=== PATIENT | male | born 1970 | race Caucasian/White ===

== ENCOUNTER 2018-03-01 16:47 | Emergency (ER) | payer OTHER ==
[~2018-03-01] VITALS: Ht 170.2 cm; Wt 70.8 kg
--- NOTE | ~2018-03-01 | EKG ---
[address] [place] [address] ELECTROCARDIOGRAM REPORT Name: LANDENGARRET Room #: [facility] Esther#: [id number] Admission: 03/01/18 Attend Phys: Discharge: 03/01/18 Date of : 66 Report #: [id number] THIS REPORT FOR: //name// [facility] ED Test Date: 2018-03-01 Test Time: 16:46:27 Pat Name: GARRET SCHUSTER Department: Room: Gender: M It Architect: DARION : 1970 Requested By: Fermin Rodriguez Order Number: [id number] MD: Jayden Avila Measurements Intervals [place] Rate: 68 P: 44 OK: 154 QRS: 68 QRSD: 93 T: 53 QT: 412 QTc: 439 Interpretive Statements Sinus rhythm No previous ECG available for comparison Electronically Signed On 03-01-2018 22:30:05 CDT by Jayden Avila [email or web address] <ELECTRONICALLY SIGNED> By: Jayden Avila MD 03/01/18 2230 [id number] Jayden Avila MD /HEATHER
[~2018-03-01 16:47] MED LIST: ZOFRAN ODT4 MG PO
[2018-03-01 17:00] LABS: ABSOLUTE NEUTROPHILS 4.7 thou/uL (1.4-8.2); EOSINOPHILS 1.5 % (0.0-3.0); HEMATOCRIT 40.9 % (42.0-52.0); LYMPHOCYTES 37.3 % (24.0-44.0); MCH 32.2 pg (26.0-34.0); MCHC 34.3 g/dL (28.0-37.0); MCV 93.9 fL (80.0-100.0); MONOCYTES 7.8 % (1.0-8.0); PLATELET COUNT 208 thou/uL (150-400); POLYS 52.4 % (36.0-66.0); RBC 4.36 mil/uL (4.50-6.00); RDW 13.8 % (10.5-14.5)
[2018-03-01] MEDS ORDERED: ST. JOSEPH ASPI81 MG PO (17:05)
[2018-03-01 17:06] LABS: ANION GAP 8 mmol/L (7-16); BUN 15 mg/dL (7-18); CALCIUM 9.3 mg/dL (8.5-10.1); CHLORIDE 106 mmol/L (98-107); CO2 26 mmol/L (21-32); GLUCOSE 95 mg/dL (74-106); POTASSIUM 3.6 mmol/L (3.5-5.1); SODIUM 140 mmol/L (136-145)
[2018-03-01] MEDS ORDERED: LISINOPRIL10 MG PO (17:06)
[2018-03-01] MEDS ORDERED: VITAMIN D5000 UNIT PO (17:06)
[2018-03-01] MEDS ORDERED: METFORMIN HCL500 MG PO (17:06)
[2018-03-01] MEDS ORDERED: MOBIC7.5 MG PO (17:06)
[2018-03-01] MEDS ORDERED: LOPRESSOR25 PO (17:07)
[2018-03-01] MEDS ORDERED: TOPAMAX50 MG PO (17:08)
[2018-03-01] MEDS ORDERED: RANITIDINE 150150 MG PO (17:08)
[2018-03-01] MEDS ORDERED: CLONAZEPAM 0.50.5 M1 PO (17:09)
[2018-03-01] MEDS ORDERED: GAS RELIEF80 MG PO (17:09)
[2018-03-01] MEDS ORDERED: LIPITOR40 MG PO (17:10)
[2018-03-01] MEDS ORDERED: LATUDA80 MG PO (17:10)
[2018-03-01] MEDS ORDERED: VISTARIL 25 MG25 M1 PO (17:11)
[2018-03-01] MEDS ORDERED: TRAZODONE 150150 M1 PO (17:11)
[2018-03-01] MEDS ORDERED: ISOSORBIDE DINI30 MG PO (17:11)
[2018-03-01 17:15] LABS: TROPONIN-I <0.06 ng/mL (<0.06)
[2018-03-01 17:28] LABS: ALBUMIN 3.6 g/dL (3.4-5.0); DIRECT BILIRUBIN < 0.1 mg/dL (<0.1-0.3); LIPASE 178 U/L (73-393); SGOT 14 U/L (15-37); SGPT 14 U/L (30-65); TOTAL BILIRUBIN 0.3 mg/dL (<0.1-1.0); TOTAL PROTEIN 6.7 g/dL (6.4-8.2)
[2018-03-01 17:45] LABS: AMP/METHAMP Negative (Negative); BARBITURATES Negative (Negative); BENZODIAZEPINES Negative (Negative); COCAINE Negative (Negative); METHADONE Negative (Negative); OPIATES Negative (Negative); PCP Negative (Negative)
[2018-03-01 21:41] VITALS: BP 122/74
== END 2018-03-01 21:42 | disposition home or self-care (01) ==
LOC: ER 16:47
PROVIDERS: Physician Assistant
DX: R07.89 Other chest pain (principal); J44.9 Chronic obstructive pulmonary disease, unspecified; I10 Essential (primary) hypertension; F20.9 Schizophrenia, unspecified; F17.210 Nicotine dependence, cigarettes, uncomplicated; Z88.8 Allergy status to other drugs, medicaments and biological substances

== ENCOUNTER 2020-05-18 11:51 | Emergency (ER) | payer OTHER ==
[~2020-05-18] VITALS: Ht 172.7 cm; Wt 77.1 kg
[~2020-05-18 11:51] MED LIST changes: +CLONAZEPAM 0.50.5 M1 PO; +GAS RELIEF80 MG PO; +ISOSORBIDE DINI30 MG PO; +LATUDA80 MG PO; +LIPITOR40 MG PO; +LISINOPRIL10 MG PO; +LOPRESSOR25 PO; +METFORMIN HCL500 MG PO; +MOBIC7.5 MG PO; +RANITIDINE 150150 MG PO; +ST. JOSEPH ASPI81 MG PO; +TOPAMAX50 MG PO; +TRAZODONE 150150 M1 PO; +VISTARIL 25 MG25 M1 PO; +VITAMIN D5000 UNIT PO
[2020-05-18 11:52] VITALS: BP 132/89
== END 2020-05-18 12:51 | disposition home or self-care (01) ==
LOC: ER 11:51
DX: R45.1 Restlessness and agitation (principal); J44.9 Chronic obstructive pulmonary disease, unspecified; I10 Essential (primary) hypertension; M19.90 Unspecified osteoarthritis, unspecified site; F20.9 Schizophrenia, unspecified; F17.210 Nicotine dependence, cigarettes, uncomplicated; Z79.899 Other long term (current) drug therapy; Z79.82 Long term (current) use of aspirin; Z88.8 Allergy status to other drugs, medicaments and biological substances

== ENCOUNTER 2020-08-11 13:45 | Emergency (ER) | payer OTHER ==
[~2020-08-11] VITALS: Ht 170.2 cm; Wt 83.0 kg
== END 2020-08-11 16:30 ==
LOC: ER 13:45
DX: S01.511A Laceration without foreign body of lip, initial encounter (principal); J44.9 Chronic obstructive pulmonary disease, unspecified; I10 Essential (primary) hypertension; F17.210 Nicotine dependence, cigarettes, uncomplicated; Z79.899 Other long term (current) drug therapy; Z79.82 Long term (current) use of aspirin; Z88.8 Allergy status to other drugs, medicaments and biological substances; Y04.2XXA Assault by strike against or bumped into by another person, initial encounter; Y93.89 Activity, other specified; Y92.89 Other specified places as the place of occurrence of the external cause; Y99.8 Other external cause status